=== PATIENT | female | born 1985 | race Caucasian/White ===

== ENCOUNTER 2019-07-26 10:35 | Emergency (ER) | payer SELFPAY ==
[2019-07-26 11:12] VITALS: BP 115/77; PULSE 70; TEMP 98.5; BMI 27.7
--- NOTE | 2019-07-26 11:35 | PDOC ---
History of Present Illness - General Chief Complaint: Shortness of Breath Stated Complaint: SHORT OF BREATH Time Seen by Provider: 07/26/19 10:43 - History of Present Illness Initial Comments: 07/26/19 11:33 33 years old with past medical history significant for anxiety presents to the ED with lightheadedness chest discomfort and mild shortness of breath. 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 Upon arrival to the emergency department patient now feels much better no longer lightheaded dizzy no chest pain or shortness of breath. Symptoms seem to occur daily there are no exacerbating or alleviating factors Past History - Past Medical History Allergies/Adverse Reactions: Allergies Allergy/AdvReac Type Severity Reaction Status Date / Time No Known Allergies Allergy Verified 07/26/19 10:38 Home Medications: Ambulatory Orders NK [No Known Home Medication] 07/26/19 COPD: No - Psycho Social/Smoking Cessation Hx Smoking History: Never smoked Hx Alcohol Use: Yes (OCCASIONAL) Drug/Substance Use Hx: No Review of Systems - Review of Systems Comments:: 07/26/19 11:33 ROS: A complete review of 10 out of 10 review of systems is taken and is negative apart from what is previously mentioned below and in the HPI. *Physical Exam - Vital Signs Last Vital Signs Temp Pulse Resp BP Pulse Ox 98.5 F 70 15 115/77 100 07/26/19 10:37 07/26/19 10:37 07/26/19 10:37 07/26/19 10:37 07/26/19 10:37 - Physical Exam 07/26/19 11:33 Vitals: Triage Vital signs reviewed General Appearance: No acute distress, well nourished well developed, Head: Atraumatic, Cardiac: Regular rate and rhythym, no murmurs, no rubs, no gallops, Lungs: Clear to auscultation bilateral, good air movement bilaterally, Abdomen: Soft, non distended, normal bowel sounds, non tender to palpation Genitourinary: Rectal: Exam deferred Extremities: Full range of motion to all extremities, no cyanosis, clubbing, or edema Skin: Warm and dry, no rashes or lesions, no rash, no petechiae Neuro: AOX3; cranial Nerves 2-12 grossly intact, strength intact to all extremities, sensation intact to all extremities, gait normal Psych: Normal mood, normal affect Medical Decision Making - Medical Decision Making 07/26/19 11:33 Well-appearing no apparent distress presents to the emergency department with signs and symptoms consistent with anxiety.Patient has these exact same symptoms daily for greater than 1 year she has an appointment next week to discuss with her PCP about starting an antianxiety medication After discussing at length with patient her symptoms have currently resolved I offered the patient a work-up including a EKG and a troponin but states that she does not want that at this time as she feels better she has had the same symptoms daily for greater than 1 year has had multiple similar work-ups and has seen a wave soldering machine operator who was determined that her symptoms are not cardiac in nature I advised patient to keep a journal of exacerbating factors to her symptoms she will call her PCP today to try to arrange a sooner appointment and it was stressed to the patient she is free to return to the emergency department at any time should her symptoms return or worsen Findings, the need for follow-up and strict return instructions discussed with patient. Discharge - Discharge Information Problems reviewed: Yes Clinical Impression/Diagnosis: Anxiety Condition: Good Disposition: HOME - Admission No - Follow up/Referral Referrals: Socorro Zuluaga [Primary Care Provider] - - Patient Discharge Instructions Patient Printed Discharge Instructions: Anxiety Disorders Additional Instructions: Please follow-up with your primary care provider this week. Return to the emergency department immediately for any severe worsening symptoms or for any concerns. Please practice breathing exercises as discussed. Return to emergency department for any severe worsening symptoms or for any concerns. - Post Discharge Activity
== END 2019-07-26 11:39 | disposition home or self-care (01) ==
LOC: FER 10:35
DX: F41.9 Anxiety disorder, unspecified (principal)
CPT/HCPCS: 99283-25